=== PATIENT | male | born 1970 | race Caucasian/White ===

== ENCOUNTER 2016-12-10 19:00 | Emergency (ER) | payer OTHER ==
[~2016-12-10 19:00] MED LIST: CREON DR 36,001 EACH PO; CYCLOBENZAPRINE10 MG PO; DILAUDID4 MG PO; HUMALOG100 U/ML SC; LANTUS100 U/ML SC; MS CONTIN30 MG PO; NAPROSYN500 MG PO; NEURONTIN100 MG PO; NEURONTIN300 MG PO; NORCO 325 MG-7.1 TAB PO; NORCO 5-325 TA1 EACH PO; ZOFRAN ODT4 MG SL
[2016-12-10 19:55] LABS: BASO % 0.6 % (0.0-1.0); EOS # 0.1 10*3/uL (0.0-0.4); EOS % 1.5 % (1.0-4.0); HEMOGLOBIN 12.3 g/dl (14.0-18.0); LYMPH # 1.9 10*3/uL (1.3-4.4); MEAN CELL VOLUME 92.1 fl (80.0-94.0); MEAN CORPUSCULAR HGB 32.4 pg (27.0-31.0); MEAN CORPUSCULAR HGB CONC 35.1 g/dl (33.0-37.0); MEAN PLATELET VOLUME 8.7 fl (9.6-12.3); MONO # 0.5 10*3/uL (0.1-1.0); MONO % 6.7 % (3.0-9.0); NEUT # 4.3 10*3/uL (2.3-7.9); NEUT % 62.9 % (47.0-73.0); PLATELET COUNT AUTOMATED 237 10*3/uL (130-400); RED CELL DISTRI WIDTH 13.3 % (0-14.5); WHITE BLOOD COUNT 6.9 10*3/uL (4.8-10.8)
[2016-12-10 19:59] LABS: BILIRUBIN NEGATIVE (NEGATIVE); BLOOD NEGATIVE (NEGATIVE); CLARITY SL CLOUDY (CLEAR); COLOR YELLOW (YELLOW); GLUCOSE 3+ (NEGATIVE); KETONE NEGATIVE (NEGATIVE); LEUKO ESTERASE NEGATIVE (NEGATIVE); NITRITE NEGATIVE (NEGATIVE); PH 5.5 (5.0-9.0); PROTEIN NEGATIVE (NEGATIVE); SPECIFIC GRAVITY 1.015 (1.005-1.030); UROBILINOGEN 0.2 E.U./dl (0.2-1.0)
[2016-12-10 20:07] LABS: URINE AMPHETAMINES < 1000 (1000ng/ml); URINE BARBITURATES < 200 (200ng/ml); URINE COCAINE < 300 (300ng/ml)
[2016-12-10 20:09] LABS: BACTERIA 2+; EPITHELIAL CELLS 0-2; RBC 0-2 rbc/hpf (0-2); WBC 0-2 wbc/hpf (0-5)
[2016-12-10 20:10] LABS: URINE REFLEX COMMENT YES (NO)
[2016-12-10 20:13] LABS: BUN 8 mg/dl (7-24); CARBON DIOXIDE 27 mmol/L (21-32); CHLORIDE 101 mmol/L (98-107); EST GLOM FILT AFRICAN AMERICAN > 60 ml/min; GLUCOSE 249 mg/dL (65-99); POTASSIUM 4.4 mmol/L (3.5-5.1); SODIUM 136 mmol/L (136-145)
[2016-12-17] MEDS ORDERED: CYMBALTA60 MG PO (15:25)
[2016-12-17] MEDS ORDERED: AMITRIPTYLINE25 MG PO (15:25)
[2016-12-31] MEDS ORDERED: PRILOSEC PO (02:15)
[2016-12-31] MEDS ORDERED: TYLENOL 3 PO (02:17)
[2016-12-31] MEDS ORDERED: NORCO 5-325 TA1 EACH PO (10:43)
[2016-12-31] MEDS ORDERED: VISTARIL25 M2 PO (10:43)
[2016-12-31] MEDS ORDERED: CYCLOBENZAPRINE5 M3 PO (10:43)
[2016-12-31] MEDS ORDERED: CYMBALTA60 MG PO (10:44)
[2016-12-31] MEDS ORDERED: ATIVAN1 MG PO (10:44)
[2016-12-31] MEDS ORDERED: BASAGLAR K100 UNIT/1 SQ (10:45)
[2017-01-01] MEDS ORDERED: VITAMIN D50000 I3 PO (10:27)
[2017-01-01] MEDS ORDERED: B121000 MCG/1 IM (10:27)
[2017-01-04] MEDS ORDERED: ZOLOFT50 MG PO (14:59)
== END 2016-12-10 21:37 | disposition home or self-care (01) ==
LOC: ED 19:00
PROVIDERS: Emergency Medicine Emergency Medical Services
DX: R41.82 Altered mental status, unspecified (principal); E10.65 Type 1 diabetes mellitus with hyperglycemia; F17.200 Nicotine dependence, unspecified, uncomplicated; G89.29 Other chronic pain; R10.30 Lower abdominal pain, unspecified; Z88.6 Allergy status to analgesic agent; Z88.8 Allergy status to other drugs, medicaments and biological substances

== ENCOUNTER 2016-12-12 20:15 | Emergency (ER) | payer OTHER ==
[~2016-12-12] VITALS: Ht 175.2 cm; Wt 59.0 kg
[2016-12-12] MEDS ORDERED: LANTUS100 U/ML SC (20:36)
[2016-12-12] MEDS ORDERED: ATIVAN0.5 MG PO (20:40)
[2016-12-12 22:20] LABS: BASO % 0.3 % (0.0-1.0); EOS # 0.1 10*3/uL (0.0-0.4); EOS % 1.2 % (1.0-4.0); HEMATOCRIT 37.9 % (42.0-52.0); HEMOGLOBIN 12.9 g/dl (14.0-18.0); LYMPH # 2.9 10*3/uL (1.3-4.4); MEAN CELL VOLUME 94.3 fl (80.0-94.0); MEAN CORPUSCULAR HGB 32.1 pg (27.0-31.0); MEAN PLATELET VOLUME 9.4 fl (9.6-12.3); MONO # 0.7 10*3/uL (0.1-1.0); MONO % 6.3 % (3.0-9.0); NEUT # 7.7 10*3/uL (2.3-7.9); NEUT % 66.9 % (47.0-73.0); PLATELET COUNT AUTOMATED 182 10*3/uL (130-400); RED BLOOD COUNT 4.02 10*6/uL (4.50-5.90); RED CELL DISTRI WIDTH 13.4 % (0-14.5); WHITE BLOOD COUNT 11.5 10*3/uL (4.8-10.8)
[2016-12-12 22:35] LABS: ALKALINE PHOSPHATASE 97 U/L (45-117); BILIRUBIN, TOTAL 0.2 mg/dl (0.2-1.0); BUN 13 mg/dl (7-24); CARBON DIOXIDE 23 mmol/L (21-32); CHLORIDE 109 mmol/L (98-107); EST GLOM FILT AFRICAN AMERICAN > 60 ml/min; GLUCOSE 87 mg/dL (65-99); POTASSIUM 3.7 mmol/L (3.5-5.1); SGOT/AST 6 IU/L (3-35); SGPT/ALT 24 U/L (12-78); SODIUM 143 mmol/L (136-145); TOTAL PROTEIN 6.1 gm/dL (6.4-8.2)
[2016-12-17] MEDS ORDERED: CYMBALTA60 MG PO (15:25)
[2016-12-17] MEDS ORDERED: AMITRIPTYLINE25 MG PO (15:25)
[2016-12-31] MEDS ORDERED: PRILOSEC PO (02:15)
[2016-12-31] MEDS ORDERED: TYLENOL 3 PO (02:17)
[2016-12-31] MEDS ORDERED: CYCLOBENZAPRINE5 M3 PO (10:43)
[2016-12-31] MEDS ORDERED: NORCO 5-325 TA1 EACH PO (10:43)
[2016-12-31] MEDS ORDERED: VISTARIL25 M2 PO (10:43)
[2016-12-31] MEDS ORDERED: ATIVAN1 MG PO (10:44)
[2016-12-31] MEDS ORDERED: CYMBALTA60 MG PO (10:44)
[2016-12-31] MEDS ORDERED: BASAGLAR K100 UNIT/1 SQ (10:45)
[2017-01-01] MEDS ORDERED: B121000 MCG/1 IM (10:27)
[2017-01-01] MEDS ORDERED: VITAMIN D50000 I3 PO (10:27)
[2017-01-04] MEDS ORDERED: ZOLOFT50 MG PO (14:59)
== END 2016-12-13 01:00 | disposition home or self-care (01) ==
LOC: ED 20:15
PROVIDERS: Nurse Practitioner Family
DX: F41.9 Anxiety disorder, unspecified (principal); F17.200 Nicotine dependence, unspecified, uncomplicated; G89.29 Other chronic pain; E10.65 Type 1 diabetes mellitus with hyperglycemia; Z88.6 Allergy status to analgesic agent; Z88.8 Allergy status to other drugs, medicaments and biological substances

== ENCOUNTER 2017-03-02 13:38 | Emergency (ER) | payer OTHER ==
[~2017-03-02] VITALS: Ht 175.2 cm; Wt 72.6 kg
[~2017-03-02 13:38] MED LIST changes: +AMITRIPTYLINE25 MG PO; +ATIVAN0.5 MG PO; +ATIVAN1 MG PO; +B121000 MCG/1 IM; +BASAGLAR K100 UNIT/1 SQ; +CYCLOBENZAPRINE5 M3 PO; +CYMBALTA60 MG PO; +PRILOSEC PO; +TYLENOL 3 PO; +VISTARIL25 M2 PO; +VITAMIN D50000 I3 PO; +ZOLOFT50 MG PO
[2017-03-02] MEDS ORDERED: HYDROCODONE BIT1 T11 PO (15:38)
== END 2017-03-02 15:51 | disposition home or self-care (01) ==
LOC: ED 13:38
DX: S20.212A Contusion of left front wall of thorax, initial encounter (principal); F17.200 Nicotine dependence, unspecified, uncomplicated; Z98.890 Other specified postprocedural states; Z79.899 Other long term (current) drug therapy; Z88.6 Allergy status to analgesic agent; Z88.8 Allergy status to other drugs, medicaments and biological substances; W50.0XXA Accidental hit or strike by another person, initial encounter; Y93.9 Activity, unspecified; Y92.89 Other specified places as the place of occurrence of the external cause; Y99.9 Unspecified external cause status

== ENCOUNTER 2017-04-27 16:33 | Inpatient (IN) | payer OTHER ==
[~2017-04-27] VITALS: Ht 175.2 cm; Wt 68.5 kg
--- NOTE | ~2017-04-27 | PR ---
[place], [place] [facility]GR[facility] NOTE [id number] UNIT #: [id number] ROOM: 427 DOCTOR: ANNETTA ANDREWS MD BIRTHDATE: [birth year] DOS: 04/29/2017 SUBJECTIVE: The patient is sitting up in bed, does not appear in any distress, reporting significant improvement in his dizziness and lightheadedness. No chest pain, no chest pressure. No symptomatic palpitation. Orthostatics were repeated with the presence of Dr. Og Jimenez and were completely negative. OBJECTIVE: VITAL SIGNS: Blood pressure 114/71, heart rate 82, respiratory rate of 16, temperature 97.8. NECK: Good upstroke, no bruit. HEART: S1, S2, no rub. LUNGS: Clear to auscultation. EXTREMITIES: Lower extremities, no edema. ASSESSMENT AND PLAN: Recurrent presentation with syncope. The patient was extensively worked up at [facility], which turned out to be vasovagal. The patient was seen and evaluated by Dr. Allen with similar complaint. On patient presentation, he was severely dehydrated. There is a long history of noncompliance. The patient's vital signs recovered. His acute renal failure completely resolved with IV hydration. The patient improved. Maneuvers that were detailed previously by Dr. Allen were reiterated again today, including avoidance of caffeine and alcohol. The patient had an echocardiogram with Dr. Allen, which was normal. There is no need for any further cardiac testing at this time. Keeping well hydrated was emphasized to the patient, especially as he is working on remodeling an old house now. Followup will be with Dr. Allen within 2-4 weeks in our clinic here in [place]. ANNETTA ANDREWS MD CM:ASHER [id number] ANNETAT ANDREWS MD 04/29/17 2343 interface
--- NOTE | ~2017-04-27 | WRIGHTHP ---
[place], [place] PATIENT HISTORY AND PHYSICAL EXAM NAME: GLENN ANDRES [facility] #: [id number] UNIT #: [id number] ROOM: 427 DOCTOR: EMILIANO MORAN MD BIRTHDATE: [birth year] DOS: 04/27/2017 HISTORY OF PRESENT ILLNESS: 1. The patient is a 46-year-old gentleman with a past medical history of uncontrolled type 1 diabetes mellitus. 2. History of alcohol dependence. 3. History of narcotic dependence. 4. Generalized anxiety disorder. 5. History of chronic pancreatitis and pancreatic pseudocyst, status post partial pancreatic resection with chronic abdominal pains. The patient presented to Emergency Department at [facility] with 3 episodes of loss of consciousness the day before admission. The patient also reported that his blood sugar was getting low. The patient was feeling dizzy after getting up, which improves when he sits down. The patient does give previous history of orthostatic hypotension and a longstanding uncontrolled diabetes mellitus. The patient also has been drinking coffee and he was drinking diet Pepsi today, although he has been asked to avoid caffeine. No chest pain, no shortness of breath. No other GI or urinary symptoms. The patient was diagnosed as having orthostatic hypotension and recommended for admission for the management. REVIEW OF SYSTEMS: LUNGS: No increasing shortness of breath or wheezing. GASTROINTESTINAL: No nausea, vomiting, diarrhea, or constipation. CARDIOVASCULAR: No chest pains or palpitations. FAMILY HISTORY: Noncontributory. SOCIAL HISTORY: Denies smoking cigarettes; previous history of alcohol abuse, still takes alcohol. Denies taking any opioids. ALLERGIES: SOMA, FENTANYL, TORADOL. PHYSICAL EXAMINATION: GENERAL: Alert and oriented x 3, in no visible distress. VITAL SIGNS: Blood pressure 122/81, heart rate of 92 beats per minute, breathing 20 times per minute, temperature 98 degrees Fahrenheit. HEENT AND NECK: Extraocular movements are intact. Sclerae are anicteric. Oral mucosa is moist and clean. No obvious facial weakness. Neck is supple without any lymphadenopathy. No thyromegaly. No JVD. No carotid arterial bruits. LUNGS: Clear to auscultation. No wheezing. No rhonchi. CARDIOVASCULAR SYSTEM: Heart rate is regular in rate and rhythm. S1 and S2 normally audible. No significant murmur or any other abnormal cardiac sounds. ABDOMEN: Soft, nontender. No obvious organomegaly. Bowel sounds are present. No obvious herniation. EXTREMITIES: Without significant cyanosis or edema. Warm to touch. CENTRAL NERVOUS SYSTEM: Alert and oriented x 3. Cranial nerves II-XII are intact. Speech is normal. The patient is able to move all extremities. Normal muscle strength. Deep tendon reflexes are equal on both sides. Plantars were [place], [place] PATIENT HISTORY AND PHYSICAL EXAM NAME: GLENN ANDRES UNIT #: [id number] ROOM: [facility] DOCTOR: EMILIANO MORAN MD BIRTHDATE: [birth year] downgoing. IMPRESSION: 1. The patient with diabetic autonomic neuropathy with postural hypotension and dehydration, has been admitted and is being hydrated with IV fluids. His BUN and creatinine have returned to normal. He is starting to feel better. The patient's orthostatic blood pressures are being checked and have normalized. The patient has been asked to stay away from caffeine and Cardiology are following him. 2. Uncontrolled type 1 diabetes mellitus with blood sugars ranging between 67-290. 3. Chronic pancreatitis from alcohol abuse and history of pancreatic pseudocyst with partial resection of the pancreas. I will continue him on pancreatic enzymes and his home medications, especially Neurontin and omeprazole. The patient on insulin for type 1 diabetes mellitus, which is being continued and blood sugars are being monitored and treated. EMILIANO MORAN MD CM:HISPHYS:PATIENT HISTORY AND PHYSICAL EXAMINATION [phone] EMILIANO MORAN MD 04/28/172241 interface
--- NOTE | ~2017-04-27 | DS ---
[place], [place] DISCHARGE SUMMARY NAME: GLENN ANDRES [facility] #: [id number] UNIT #: [id number] ROOM: 427 DOCTOR: EMILIANO MORAN MD BIRTHDATE: [birth year] DOS: 04/29/2017 DISCHARGE DIAGNOSES: 1. Diabetic autonomic neuropathy. 2. Orthostatic hypotension from diabetic autonomic neuropathy as mentioned above and dehydration and hypovolemia. 3. History of alcohol dependence. 4. History of narcotic dependence and drug dependence. 5. Generalized anxiety disorder. 6. Chronic pancreatitis and pancreatic pseudocyst, status post pancreatic resection and chronic abdominal pains. 7. Type 1 diabetes mellitus, uncontrolled. HOSPITAL COURSE: The patient presented to [facility] with 3 episodes of loss of consciousness that day. The patient was found to be dehydrated, hypovolemic and had severe postural hypotension. The patient was started on hydration with IV fluids. A Cardiology consult was obtained and the patient was diagnosed as having diabetic autonomic neuropathy other than dehydration and hypovolemia. The patient was asked to stay away from caffeine by the decorative engraver apprentice and after hydration, he has not been orthostatic since yesterday. Blood pressures that took today were 105 systolic over 75 diastolic lying down and remained the same, standing up with the heart rate at 80 beats per minute going to 85 beats per minute. The reading by community development aide was at 88 systolic, was incorrect. The patient completely asymptomatic and does not get dizzy or symptomatic with standing up. 1. The patient is noncompliant with diet and is an uncontrolled type 1 diabetic secondary to pancreatic injury in the past. 2. Chronic pancreatitis. The patient remains on pancreatic enzymes. 3. History of alcohol dependence. The patient encouraged to stay completely off alcohol. 4. History of narcotic pain medication dependence. The patient encouraged to stay off and just take his Vicodin as needed. 5. Generalized anxiety disorder. 6. Type 1 diabetes mellitus, uncontrolled. The patient is poorly compliant with diet and treatment. LABORATORY DATA: Normal serum electrolytes. Blood sugar 234, calcium level 8.1. CT of the C-spine and head were normal. Blood sugars ranging between 67 to 292. DISCHARGE MANAGEMENT: Gabapentin 300 mg every 8 hours, omeprazole 40 mg daily, Lantus insulin 20 units daily, Creon pancreatic enzymes 12,000 units with every meal and Vicodin t.i.d. p.r.n. for pain. [place], [place] DISCHARGE SUMMARY NAME: GLENN ANDRES UNIT #: [id number] ROOM: 427 DOCTOR: EMILIANO MORAN MD BIRTHDATE: [birth year] EMILIANO MORAN MD CM:DISCHARG [id number] EMILIANO MORAN MD 04/29/17 1908 interface
[~2017-04-27 16:33] MED LIST changes: +HYDROCODONE BIT1 T11 PO
[2017-04-27 17:46] VITALS: BP 115/78
[2017-04-27 17:54] LABS: BASO % 0.3 % (0.0-1.0); EOS # 0.2 10*3/uL (0.0-0.4); EOS % 1.7 % (1.0-4.0); HEMATOCRIT 46.2 % (42.0-52.0); MEAN CELL VOLUME 87.5 fl (80.0-94.0); MEAN CORPUSCULAR HGB 32.2 pg (27.0-31.0); MEAN CORPUSCULAR HGB CONC 36.8 g/dl (33.0-37.0); MEAN PLATELET VOLUME 9.4 fl (9.6-12.3); MONO # 0.9 10*3/uL (0.1-1.0); MONO % 6.6 % (3.0-9.0); NEUT # 10.7 10*3/uL (2.3-7.9); NEUT % 77.2 % (47.0-73.0); PLATELET COUNT AUTOMATED 320 10*3/uL (130-400); RED BLOOD COUNT 5.28 10*6/uL (4.50-5.90); RED CELL DISTRI WIDTH 11.9 % (0-14.5); WHITE BLOOD COUNT 13.9 10*3/uL (4.8-10.8)
[2017-04-27 18:12] LABS: ALBUMIN 4.2 gm/dl (3.1-4.5); BILIRUBIN, TOTAL 0.4 mg/dl (0.2-1.0); BUN 29 mg/dl (7-24); CARBON DIOXIDE 25 mmol/L (21-32); CHLORIDE 94 mmol/L (98-107); EST GLOM FILT AFRICAN AMERICAN 57 ml/min; GLUCOSE 169 mg/dL (65-99); MAGNESIUM 2.3 mg/dL (1.5-2.1); POTASSIUM 4.3 mmol/L (3.5-5.1); SGOT/AST 16 IU/L (3-35); SGPT/ALT 25 U/L (12-78); SODIUM 134 mmol/L (136-145); TOTAL PROTEIN 8.3 gm/dL (6.4-8.2)
[2017-04-27 18:14] LABS: ALKALINE PHOSPHATASE 99 U/L (45-117)
[2017-04-27 18:24] LABS: TROPONIN I < 0.015 ng/ml (<0.045)
[2017-04-27 18:32] VITALS: BP 96/61
[2017-04-27 18:49] LABS: BILIRUBIN 2+ (NEGATIVE); BLOOD NEGATIVE (NEGATIVE); CLARITY SL CLOUDY (CLEAR); COLOR YELLOW (YELLOW); GLUCOSE 2+ (NEGATIVE); KETONE TRACE (NEGATIVE); LEUKO ESTERASE NEGATIVE (NEGATIVE); NITRITE NEGATIVE (NEGATIVE); PROTEIN 2+ (NEGATIVE); SPECIFIC GRAVITY >= 1.030 (1.005-1.030)
[2017-04-27 19:06] LABS: BACTERIA 1+; CALCIUM OXALATE CRYSTALS 3+; HYALINE CAST TNTC; RBC 0-2 rbc/hpf (0-2); WBC 0-2 wbc/hpf (0-5)
[2017-04-27 19:07] LABS: URINE REFLEX COMMENT NO (NO)
[2017-04-27 19:40] VITALS: BP 102/66
[2017-04-27 20:00] VITALS: BP 113/77
[2017-04-27 20:22] VITALS: BP 110/76
[2017-04-27 20:50] VITALS: BP 110/76
[2017-04-28] VITALS: BP 88/57
[2017-04-28 00:26] LABS: CKMB 0.8 ng/ml (0.5-3.6); CPK 52 U/L (39-308)
[2017-04-28 00:28] LABS: TROPONIN I < 0.015 ng/ml (<0.045)
[2017-04-28 04:33] VITALS: BP 104/77
[2017-04-28 07:38] LABS: CARBON DIOXIDE 28 mmol/L (21-32); CHLORIDE 103 mmol/L (98-107); EST GLOM FILT AFRICAN AMERICAN > 60 ml/min; GLUCOSE 234 mg/dL (65-99); POTASSIUM 3.8 mmol/L (3.5-5.1); SODIUM 138 mmol/L (136-145)
[2017-04-28 07:39] LABS: BUN 17 mg/dl (7-24)
[2017-04-28 08:00] VITALS: BP 108/60
[2017-04-28 12:00] VITALS: BP 110/68
[2017-04-28 16:00] VITALS: BP 122/81
[2017-04-28 18:37] LABS: THYROID STIM HORMONE (HS) 0.432 uIU/ml (0.358-4.75)
[2017-04-28 18:39] LABS: C-REACTIVE PROTEIN < 0.29 MG/DL (0-0.3)
[2017-04-28 20:00] VITALS: BP 109/63
[2017-04-29] VITALS: BP 114/71
[2017-04-29 08:00] VITALS: BP 88/58
== END 2017-04-29 13:15 | disposition home or self-care (01) | DRG 73 ==
LOC: ED 16:33 → EDHOLD 19:42 → 4E 19:42
PROVIDERS: Internal Medicine; Internal Medicine Cardiovascular Disease; Nurse Practitioner Family
DX: E10.43 Type 1 diabetes mellitus with diabetic autonomic (poly)neuropathy (principal); N17.0 Acute kidney failure with tubular necrosis; K86.0 Alcohol-induced chronic pancreatitis; E86.0 Dehydration; I95.1 Orthostatic hypotension; F41.1 Generalized anxiety disorder; E10.65 Type 1 diabetes mellitus with hyperglycemia; Z91.14 Patient's other noncompliance with medication regimen; Z91.11 Patient's noncompliance with dietary regimen; Z88.6 Allergy status to analgesic agent; Z88.8 Allergy status to other drugs, medicaments and biological substances